=== PATIENT | female | born 1975 | race Caucasian/White ===

== ENCOUNTER 2017-02-21 23:42 | Emergency (ER) | payer OTHER ==
[~2017-02-21 23:42] MED LIST: ALBUTEROL 0.5ML INH; ALBUTEROL17 GM INH; ALBUTEROL20 ml INH; AMLODIPINE BESYL5 MG PO; AUGMENTIN PO; BACTRIM 400-801 TA1 PO; BACTRIM DS TABL1 TA1 PO; COMBIVENT INH14.7 GM INH; COUMADIN5 MG PO; CYANOCOBALAM1000 MCG PO; FERRO-TIME325 MG PO; FLEXERIL PO; FLEXERIL10 MG PO; GABAPENTIN300 M2 PO; IBUPROFEN; IBUPROFEN800 MG PO; IRON1 TAB PO; KEFLEX; KEFLEX500 MG PO; LEVAQUIN750 MG PO; LISINOPRIL PO; LISINOPRIL-HCTZ1 T19 PO; LISINOPRIL-HCTZ1 T20 PO; LORTAB 10-5001 EACH PO; LORTAB 7.5-5001 TAB PO; LOTREL PO; LOVENOX30 MG/0.3 INJ; MAGIC MOUTH; MEDROL PO; METOPROLOL TAR25 MG; NAPROSYN500 MG PO; NICOTINE TRANSD14 MG EXT; NORCO 5/325 TAB1 TAB PO; PERCOCET 10/3251 TAB PO; PREDNISONE10 MG PO; PRENATAL1 TA1 PO; PULMICORT90 MCG/AER; REMERON15 MG PO; SEREVENT D50 MCG/DIS PO; SYMBICORT INH; TRAMADOL HCL100 M1 PO; ULTRAM; ULTRAM PO; VANCOMYCIN HCL1 GM IV; VICODIN ES 7.51 EACH PO
== END 2017-02-22 02:00 | disposition home or self-care (01) ==
LOC: CED 23:42
DX: T40.1X1A Poisoning by heroin, accidental (unintentional), initial encounter (principal); F11.10 Opioid abuse, uncomplicated; I10 Essential (primary) hypertension; J44.9 Chronic obstructive pulmonary disease, unspecified; F17.200 Nicotine dependence, unspecified, uncomplicated; Z88.0 Allergy status to penicillin
CPT/HCPCS: 99282

== ENCOUNTER 2017-02-27 00:42 | Emergency (ER) | payer OTHER ==
[2017-02-27] MEDS ORDERED: IRON18 MG (00:56)
[2017-02-27] MEDS ORDERED: VITAMIN D400 UNI2 (00:57)
== END 2017-02-27 02:16 | disposition home or self-care (01) ==
LOC: SED 00:42
DX: F11.23 Opioid dependence with withdrawal (principal); F41.9 Anxiety disorder, unspecified; J44.9 Chronic obstructive pulmonary disease, unspecified; I10 Essential (primary) hypertension; F17.200 Nicotine dependence, unspecified, uncomplicated; Z88.0 Allergy status to penicillin; Z79.899 Other long term (current) drug therapy
CPT/HCPCS: 99283